=== PATIENT | female | born 1975 | race Caucasian/White ===

== ENCOUNTER → 2024-12-08 | Outpatient (CLI) | payer SELFPAY ==
[~2024-12-08] MED LIST: FERR325T3 PO; HYDR-3715 PO; TYLE325T5 PO
== END ==
LOC: M RAD 11:09
PROVIDERS: ATTEND Chiropractor
DX: M41.9 Scoliosis, unspecified (principal); M47.815 Spondylosis without myelopathy or radiculopathy, thoracolumbar region